=== PATIENT | female | born 1965 ===

== ENCOUNTER 2017-03-20 10:20 | Emergency (ER) | payer OTHER ==
[2017-03-20 10:28] VITALS: RESP 16; TEMP 97.6
[2017-03-20] MEDS ORDERED: Sodium Chloride 0.9% 1,000 ML IV STA (10:47)
[2017-03-20] MEDS ORDERED: diaZEpam 10 mg/2 ml Inj IVP ONE ×2 (10:48→12:55)
[2017-03-20] MEDS ORDERED: diaZEpam 10 mg/2 ml Inj ONE ×2 (11:00→13:29)
--- NOTE | 2017-03-20 11:01 | ED PDOC ---
HPI: General Adult Time Seen by Provider: 03/20/17 10:28 Chief Complaint (Nursing): Dizziness/Lightheaded Chief Complaint (Provider): Dizziness History Per: Patient History/Exam Limitations: no limitations Onset/Duration Of Symptoms: Days (Today while working) Additional Complaint(s): Pt. with dizziness like her vertigo. 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 Pt. had nonbloody vomiting as well. Pt. denies any chest pain , dyspnea, weakness, headaches, numbness, tingles, cough. 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 No abd pain, back pain. No fever. Has had MRI already for eval and was neg. Sees Dr. Conti. Here for same in the past. Past Medical History Reviewed: Nursing Documentation, Vital Signs Vital Signs: Last Vital Signs Temp 97.6 F 03/20/17 10:23 Pulse 91 H 03/20/17 13:36 Resp 16 03/20/17 13:36 BP 121/73 03/20/17 13:36 Pulse Ox 100 03/20/17 13:36 - Medical History Other PMH: vertigo - Surgical History Surgical History: No Surg Hx - Family History Family History: States: Unknown Family Hx - Social History Current smoker - smoking cessation education provided: No Alcohol: None Drugs: Denies - Immunization History Hx Tetanus Toxoid Vaccination: Yes Hx Influenza Vaccination: Yes Hx Pneumococcal Vaccination: No - Home Medications Home Medications: Ambulatory Orders Medication Instructions Recorded Ondansetron ODT [Zofran ODT] 1 odt PO Q6 PRN #30 odt 04/10/16 diaZEpam [Valium] 5 mg PO HS PRN #5 tab 04/10/16 - Allergies Allergies/Adverse Reactions: Allergies Allergy/AdvReac Type Severity Reaction Status Date / Time No Known Allergies Allergy Verified 04/10/16 17:59 Review of Systems ROS Statement: Except As Marked, All Systems Reviewed And Found Negative Gastrointestinal: Positive for: Nausea, Vomiting Neurological: Positive for: Dizziness Physical Exam - Reviewed Nursing Documentation Reviewed: Yes Vital Signs Reviewed: Yes - Physical Exam Appears: Positive for: Non-toxic, No Acute Distress Head Exam: Positive for: ATRAUMATIC, NORMAL INSPECTION, NORMOCEPHALIC Skin: Positive for: Normal Color, Warm, DRY Eye Exam: Positive for: EOMI, Normal appearance, PERRL ENT: Positive for: Normal ENT Inspection Neck: Positive for: Normal, Painless ROM, Supple Cardiovascular/Chest: Positive for: Regular Rate, Rhythm Respiratory: Positive for: CNT, Normal Breath Sounds Gastrointestinal/Abdominal: Positive for: Normal Exam, Bowel Sounds, Soft. Negative for: Tenderness Back: Positive for: Normal Inspection. Negative for: L CVA Tenderness, R CVA Tenderness Extremity: Positive for: Normal ROM. Negative for: Tenderness, Pedal Edema Neurologic/Psych: Positive for: Alert, authorization specialist II-XII, Oriented. Negative for: Motor/Sensory Deficits - Laboratory Results Result Diagrams: 03/20/17 11:00 03/20/17 11:00 Interpretation Of Abn Labs: 3.4 K - ECG ECG: Positive for: Interpreted By Me, Viewed By Me ECG Rhythm: Positive for: Normal QRS, Normal ST Segment, Sinus Rhythm O2 Sat by Pulse Oximetry: 98 Pulse Ox Interpretation: Normal - Progress ED Course And Treament: 1259: Stable. Feels better, but dizziness still present. Will give 12.5mg antivert and 2.5mg valium. 1457: Stable. AAOx3. Feels much better. Tolerated PO. Ambulated with no issues. FU with pcp. Disposition - Clinical Impression Clinical Impression: Dizziness - Patient ED Disposition Is Patient to be Admitted: No Counseled Patient/Family Regarding: Studies Performed, Diagnosis, Need For Followup - Disposition Referrals: Caleb Fuller MD [Family Provider] - 03/23/17 Rah Conti MD [Staff Provider] - 03/23/17 Disposition: Routine/Home Disposition Time: 15:06 Condition: STABLE Additional Instructions: Return if not better in 3 days. Instructions: Dizziness (ED) Forms: [facility] ([place]), [facility] ED School/Work Excuse
[2017-03-20 11:15] LABS: BASO # 0.1 K/uL (0.0-0.2); BASO % 0.7 % (0.0-2.0); EOS # 0.1 K/uL (0.0-0.7); HEMOGLOBIN 13.5 g/dL (12.0-16.0); LYMPH # 2.5 K/uL (1.0-4.3); LYMPH % 27.7 % (20.0-40.0); MEAN CELL VOLUME 94.9 fl (81.0-99.0); MEAN CORPUSCULAR HEMOGLOBIN 31.5 pg (27.0-31.0); MEAN CORPUSCULAR HGB CONC 33.2 g/dL (33.0-37.0); MEAN PLATELET VOLUME 9.4 fl (7.2-11.7); MONO # 0.4 K/uL (0.0-0.8); MONO % 4.9 % (0.0-10.0); NEUT # 5.9 K/uL (1.8-7.0); NEUT % 65.7 % (50.0-75.0); RBC 4.29 Mil/uL (3.80-5.20); RED CELL DISTRIBUTION WIDTH 13.1 % (11.5-14.5); WHITE BLOOD COUNT 8.9 K/uL (4.8-10.8)
[2017-03-20 11:31] LABS: ALB/GLOB RATIO 1.3 (1.0-2.1); ALBUMIN 4.5 g/dL (3.5-5.0); ALT/SGPT 32 U/L (9-52); AST/SGOT 28 U/L (14-36); BLOOD UREA NITROGEN 9 mg/dl (7-17); CALCIUM 8.9 mg/dL (8.4-10.2); GFR AFRICAN-AMERICAN > 60; GFR NON-AFRICAN AMERICAN > 60
[2017-03-20] MEDS ORDERED: Potassium Chloride 20 mEq ER Tab PO ONE ×2 (12:58→13:27)
--- NOTE | 2017-03-20 15:35 | CARD ---
APPROVED REPORT EKG Measurement Heart [id number] <Conclusion> Normal sinus rhythm Normal ECG
[2017-03-20 16:18] VITALS: BP 127/81; PULSE 81; O2SAT 99
== END 2017-03-20 16:18 | disposition home or self-care (01) ==
LOC: H.ER 10:20
DX: R42 Dizziness and giddiness (principal); R73.09 Other abnormal glucose